=== PATIENT | male | born 1975 | race Caucasian/White ===

== ENCOUNTER 2021-02-16 15:28 | Emergency (ER) | payer OTHER | END 2021-02-16 15:55 | disposition home or self-care (01) | LOC: ER1 15:28 | DX: U07.1 COVID-19 (principal); J06.9 Acute upper respiratory infection, unspecified; F17.200 Nicotine dependence, unspecified, uncomplicated; Z90.49 Acquired absence of other specified parts of digestive tract | CPT/HCPCS: 99284; U0003 ==